=== PATIENT | male | born 1985 | race Caucasian/White ===

== ENCOUNTER 2024-02-06 09:54 | Emergency (ER) | payer OTHER, MEDICAID ==
[~2024-02-06] VITALS: Ht 175.3 cm; Wt 85.4 kg
[2024-02-06 10:16] LABS: BASOPHILS 0.5 % (0-2); EOSINOPHILS 3.4 % (0-6); HEMATOCRIT 43.3 % (35.0-50.0); HEMOGLOBIN 14.5 g/dL (12.0-18.0); LYMPHOCYTES 29.3 % (24-44); MCH 28.7 (27-36); MCHC 33.5 g/dl (30-36); MCV 85.4 fl (81-99); MONOCYTES 9.2 % (0-12); NEUTROPHILS 57.6 % (39-80); PLATELET COUNT 222 K/uL (140-440); RBC 5.07 M/ul (4.3-5.7)
[2024-02-06 10:28] LABS: ALBUMIN 3.8 g/dL (3.4-5.0); ALBUMIN/GLOBULIN RATIO 1.19 (1.1-2.4); ALCOHOL, MEDICAL <3 ng/dL (<3); ALKALINE PHOSPHATASE 57 U/L (46-116); ALT (SGPT) 28 U/L (14-59); AST (SGOT) 15 U/L (15-37); BILIRUBIN, TOTAL 0.4 ng/dL (0.2-1.0); BUN/CREATININE RATIO 13.88 (6.0-28.6); CALCIUM 8.8 mg/dL (8.5-10.1); CARBON DIOXIDE 31 mmol/L (21-32); CHLORIDE 100 mmol/L (98-107); CREATININE, SERUM 1.08 mg/dL (0.70-1.30); GLOMERULAR FILTRATION RATE,EST 91 mL/min (>60); UREA NITROGEN 15 mg/dL (7-18)
[2024-02-06 11:25] VITALS: BP 97/82
--- OUTSIDE RECORDS SUMMARY | 2024-02-06 11:37 | XMS ---
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 Liam VISIT COUNT (12 MO.) 1 CAPO [place] TOTAL 3 NOTE: Visits indicate total known visits. ED/UCC VISIT TRACKING (12 MO.) 02/06/2024 09:54 [place]O [place] TYPE: Emergency COMPLAINT: - FALL 01/17/2024 16:44 [place] TYPE: Emergency DIAGNOSES: - Encounter for other general examination - Foreign body in mouth, initial encounter - Medical Clearance 03/02/2023 18:14 Derrick REED TYPE: Emergency DIAGNOSES: - Nontoxic single thyroid nodule - [facility] INPATIENT VISIT TRACKING (12 MO.) No inpatient visits to display in this time frame [email or web address]
== END 2024-02-06 10:25 | disposition left against medical advice (07) ==
LOC: ED 09:54
PROVIDERS: Emergency Medicine
DX: R20.0 Anesthesia of skin (principal); W10.9XXA Fall (on) (from) unspecified stairs and steps, initial encounter; Z53.29 Procedure and treatment not carried out because of patient's decision for other reasons; Y92.149 Unspecified place in prison as the place of occurrence of the external cause
CPT/HCPCS: 36415; 70450; 80053; 85025; 99284-25; G0480

== ENCOUNTER 2024-02-07 17:37 | Emergency (ER) | payer MEDICAID ==
[~2024-02-07] VITALS: Ht 175.3 cm; Wt 87.7 kg
--- OUTSIDE RECORDS SUMMARY | 2024-02-07 17:38 | XMS ---
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 Liam VISIT COUNT (12 MO.) 2 CAPO [place] TOTAL 4 NOTE: Visits indicate total known visits. ED/UCC VISIT TRACKING (12 MO.) 02/07/2024 17:38 [place]O [place] TYPE: Emergency COMPLAINT: - FORIGEN BODY 02/06/2024 09:54 CAPO [place] TYPE: Emergency COMPLAINT: - FALL 01/17/2024 16:44 [place] TYPE: Emergency DIAGNOSES: - Encounter for other general examination - Foreign body in mouth, initial encounter - Medical Clearance 03/02/2023 18:14 Derrick REED TYPE: Emergency DIAGNOSES: - Nontoxic single thyroid nodule - [facility] INPATIENT VISIT TRACKING (12 MO.) No inpatient visits to display in this time frame [email or web address]
[2024-02-07 21:00] LABS: AMPHETAMINES, URINE POSITIVE (NEGATIVE); BARBITURATES, URINE NEGATIVE (NEGATIVE); BENZODIAZEPINE, URINE NEGATIVE (NEGATIVE); BUPRENORPHINE, URINE NEGATIVE (NEGATIVE); CANNABINOID, URINE NEGATIVE (NEGATIVE); COCAINE, URINE NEGATIVE (NEGATIVE); ECSTASY, URINE POSITIVE (NEGATIVE); FENTANYL, URINE NEGATIVE (NEGATIVE); METHADONE, URINE NEGATIVE (NEGATIVE); OPIATES, URINE POSITIVE (NEGATIVE); OXYCODONE, URINE NEGATIVE (NEGATIVE); PHENCYCLIDINE, URINE NEGATIVE (NEGATIVE)
[2024-02-07] MEDS ORDERED: MAGNESIUM CITRATE 300 ML BTL PO ONE (21:30)
[2024-02-07 21:35] VITALS: BP 138/78
== END 2024-02-07 21:35 | disposition home or self-care (01) ==
LOC: ED 17:37
PROVIDERS: Internal Medicine
DX: T43.621A Poisoning by amphetamines, accidental (unintentional), initial encounter (principal); R00.0 Tachycardia, unspecified
CPT/HCPCS: 80307; 99283